=== PATIENT | female | born 1975 | race Caucasian/White ===

== ENCOUNTER 2020-08-23 05:56 | Emergency (ER) | payer OTHER ==
[~2020-08-23 05:56] MED LIST: ETODOLAC500 MG PO; IBUPROFEN800 MG PO
[2020-08-23 06:41] LABS: BILIRUBIN 1+ mg/dL (NEGATIVE); BLOOD 1+ Ery/uL (NEGATIVE); CLARITY CLEAR (CLEAR); COLOR YELLOW (YELLOW); GLUCOSE (U) NORMAL (NORMAL); LEUKOCYTES NEGATIVE Leu/uL (NEGATIVE); NITRITE NEGATIVE (NEGATIVE); PROTEIN 1+ mg/dL (NEGATIVE); SPECIFIC GRAVITY >=1.030 (1.001-1.030); UROBILINOGEN 0.2 mg/dL (0.2-1.0)
[2020-08-23 06:42] LABS: BASOPHIL 0.1 % (0-2); EOSINOPHIL 0 % (0-5); HCT 44.8 % (37.0-47.0); HGB 15.3 g/dl (12.5-16.0); LYMPHOCYTE 5.3 % (15-48); MCHC 34.2 g/dL (32.0-36.0); MCV 90.9 fL (78.0-100.0); MONOCYTE 8.6 % (0-12); MPV 9.9 fL (6.0-9.5); NEUTROPHIL 85.6 % (41-80); NRBC 0; PLT 258 K/uL (150-400); RBC 4.93 M/uL (4.20-5.40); RDW 13.5 % (11.5-14.0)
[2020-08-23 06:48] LABS: MUCOUS MODERATE
[2020-08-23 06:49] LABS: BACTERIA 1+
[2020-08-23 07:00] LABS: BILIRUBIN - TOTAL 0.7 mg/dL (0.2-1.0); CREATININE 1.13 mg/dL (0.51-0.95); GLOBULIN (CALCULATION) 4.2 g/dL; POTASSIUM 3.6 mmol/L (3.5-5.1); TOTAL PROTEIN 8.2 g/dL (6.4-8.2)
[2020-08-23] MEDS ORDERED: ZOFRAN4 M1 PO (08:27)
[2020-08-23] MEDS ORDERED: NAPROXEN500 MG PO (08:27)
[2020-08-23] MEDS ORDERED: FLOMAX0.4 MG PO (08:27)
== END 2020-08-23 08:48 | disposition home or self-care (01) ==
LOC: FER 05:56
PROVIDERS: Emergency Medicine
DX: N13.2 Hydronephrosis with renal and ureteral calculous obstruction (principal)
CPT/HCPCS: 36415; 80053; 81001; 83690; 85025; 87088; J1885; J2405